=== PATIENT | female | born 1955 | race Caucasian/White ===

== ENCOUNTER 2017-05-29 12:02 | Emergency (ER) | payer OTHER, BC ==
[~2017-05-29] VITALS: Ht 154.9 cm; Wt 65.0 kg
[2017-05-29 12:35] VITALS: BP 154/84; PULSE 71; RESP 20; TEMP 97.7; O2SAT 96
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
[2017-05-29] MEDS ORDERED: MORPHINE SULFATE 4 MG/ML INJ IM ONE (13:15)
[2017-05-29] MEDS ORDERED: ONDANSETRON HCL 4 MG/2 ML VIAL IM ONE (13:15)
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
[2017-05-29] MEDS ORDERED: ONDANSETRON HCL 4 MG/2 ML VIAL IV PUSH ONE (13:30)
[2017-05-29] MEDS ORDERED: MORPHINE SULFATE 4 MG/ML INJ IV PUSH ONE (13:30)
[2017-05-29] MEDS ORDERED: ROBA750T PO (13:58)
[2017-05-29] MEDS ORDERED: IBUP-232 PO (13:58)
[2017-05-29] MEDS ORDERED: KETOROLAC TROMETHAMINE 30 MG/ML (IVP) VIAL IV PUSH ONE (14:00)
== END 2017-05-29 14:33 | disposition home or self-care (01) ==
LOC: NEPD 12:02
DX: S16.1XXA Strain of muscle, fascia and tendon at neck level, initial encounter (principal); S29.019A Strain of muscle and tendon of unspecified wall of thorax, initial encounter; E11.9 Type 2 diabetes mellitus without complications; I34.1 Nonrheumatic mitral (valve) prolapse; V43.52XA Car driver injured in collision with other type car in traffic accident, initial encounter
CPT/HCPCS: 71010; 72072; 72125; 96374; 96375; 99285; J1885; J2270; J2405